=== PATIENT | female | born 1950 | race Caucasian/White ===

== ENCOUNTER → 2018-04-18 09:17 | Outpatient (CLI) | payer MEDICARE, OTHER ==
[2016-01-22 09:16] VITALS: BMI 38.7
[~2018-04-18 09:17] MED LIST: ARMOUR THYROID60 M1 PO; HYDROCODON-ACE1 EAC7 PO; MESTINON60 MG PO; PRILOSEC20 MG PO; RESTASIS EYE DR30 EA; RESTASIS EYE DR30 EA EACH EYE; SALAGEN5 MG PO
== END | disposition home or self-care (01) ==
LOC: D.HCCARDIO 09:17
DX: I20.9 Angina pectoris, unspecified (principal)

== ENCOUNTER 2018-05-02 11:04 | Outpatient (CLI) | payer MEDICARE, OTHER ==
[~2018-05-02] VITALS: Ht 167.6 cm; Wt 118.2 kg
--- NOTE | ~2018-05-02 | HEMODYNAMI ---
PATIENT:BEENA SWANSON MEDICAL RECORD: [id number] : 52 LOCATION:[facility] ADMISSION DATE: 05/02/18 Generatedon:05/02/201813:35 Patient name: BEENA SWANSON Patient #: [id number] SSN: : 1950 Date of study: 05/02/2018 Page: Of Hemodynamic Procedure Report Patient Data Patient Demographics Procedure consent was obtained First Name: BEENA Gender: Female Last Name: KIKI : 1950 Middle Initial: E Age: 67 year(s) Patient #: [id number] Race: Unknown Additional ID: [id number] Contact details [address]: [address] [place] [address] cutoff [facility] [place] [facility] Zip code: [address] Past Medical History Allergies Allergen Reaction Date Comments Reported Other allergy 05/02/2018 CODEINE, PCN, SULFA Admission Admission Data Admission Date: 05/02/2018 Admission Time: 11:04 Height (in.): 66 BSA: 2.24 (m2) Height (cm.): 167.64 BMI: 42.29 (kg/m2) Weight (lbs.): 262 Weight (kg.): 118.84 Lab Results Lab Result Date: 05/02/2018 Lab Result Time: 0:00 Biochemistry Name Units Result Min Max BUN mg/dl 19 --(----)*- 7 18 Creatinine mg/dl 0.8 --(-*--)-- 0.6 1.3 CBC Name Units Result Min Max Hemoglobin g/dl 14.3 --(*---)-- 13.5 17.5 Procedure Procedure Types Cath Procedure Diagnostic Procedure [facility] w/Coronaries Sedation Charges Moderate Sedation up to 15 minutes Procedure Description Procedure Date Procedure Date: 05/02/2018 Procedure Start Time: 13:20 Procedure End Time: 13:32 Procedure Staff Name Function Brown Rojas MD Performing Physician Tonja Doss RN Nurse Matt Andrews RT Scrub Rachelle Ibanez RT Monitor Procedure Data Cath Procedure Fluoroscopy Diagnostic fluoroscopy Total fluoroscopy Time: 1 time: 1 min min Diagnostic fluoroscopy Total fluoroscopy dose: 333 dose: 333 mGy mGy Contrast Material Contrast Material Type Amount (ml) Isovue 300 49 Entry Location Entry Primary Successful Side Size Upsize Upsize Entry Closure Succes sful Closure Location (Fr) 1 (Fr) 2 (Fr) Remarks Device Remarks Femoral Right 5 Fr Exoseal artery Estimated blood loss: 5 ml Diagnostic catheters Device Type Used For End Catheter Placement MULTIPACK JL 4.0 5Fr Procedure catheter MULTIPACK 3DRC 5Fr Procedure catheter MULTIPACK Pigtail 5 Fr Procedure catheter Procedure Complications No complications Procedure Medications Medication Administration Route Dosage 0.9% NaCl I.V. 100 ml/hr Oxygen etCO2 Nasal cannula 2 l/min Lidocaine 2% added to field 20 Heparin Flush Bag added to field 2 bags (1000units/500ml NS) Versed I.V. 2 mg Fentanyl I.V. 50 mcg Versed I.V. 1 mg Fentanyl I.V. 25 mcg Hemodynamics Rest BSA: 2.24 (m2) HGB: 14.3 (g/dl) O2 Consumption: Estimated: 198.46 (ml/min) O2 Co nsumption indexed: Estimated:88.6 (ml/min/m) Heart Rate: 58 (bpm) Pressure Samples Time Site Value (mmHg) Purpose Heart Use Rate(bpm) 13:29 LV 140/13,22 Snapshot 64 13:29 AO 146/77(102) Pullback 64 Gradients Valve Time Site Site 2 Mean SEP/DFP Peak To Heart Use 1 (mmHg) (sec/min) Peak Rate (mmHg) (bpm) Aortic 13:29 LV AO 64 146/77(102) Snapshots Pre Cath Intra NCS Post Cath Vital Signs Time Heart Resp SPO2 etCO2 NIBP (mmHg) Rhythm Pain Sedation Rate (ipm) (%) (mmHg) Status Level (bpm) 13:05:36 58 21 98 35.1 134/73(92) NSR 0 (11) 10(A) , No pain 13:10:06 57 13 100 42.6 126/73(91) NSR 0 (11) 10(A) , No pain 13:14:28 59 13 98 46.4 123/76(92) NSR 0 (11) 10(A) , No pain 13:18:53 59 11 98 42.6 135/75(92) NSR 0 (11) 10(A) , No pain 13:23:17 61 12 98 41.9 131/76(107) NSR 0 (11) 9(A) , No pain 13:27:46 60 14 100 44.8 133/73(97) NSR 0 (11) 9(A) , No pain 13:31:04 64 24 100 43.3 125/76(101) NSR 0 (11) 10(A) , No pain Medications Time Medication Route Dose Verified Delivered Reason Notes Eff ectiveness by by 13:04:21 0.9% NaCl I.V. 100 Brown Tonja used for ml/hr [place] Romario procedure RN 13:04:28 Oxygen etCO2 2 Brown Tonja used for Nasal l/min [facility] procedure cannula MD MIRZA 13:04:34 Lidocaine 2% added 20ml Brown Dasilva for local to vial [facility] anesthetic field MD CERVANTES 13:04:39 Heparin Flush added 2 Brown Brown used for Bag to bags [facility] procedure (1000units/500ml field MD CERVANTES NS) 13:15:35 Versed I.V. 2 mg Brown Tonja for [place] Doss sedation RN 13:15:40 Fentanyl I.V. 50 Brown Tonja for mcg [facility] Doss sedation RN 13:20:01 Fentanyl I.V. 25 Brown Tonja for mcg [facility] Doss sedation MD MIRZA 13:20:54 Versed I.V. 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 Start room use. 12:41:22 Signed procedure consent form obtained from patient. 12:41:24 Diagnostic Cath status Elective 12:41:26 Time tracking: Regular hours (M-F 7:00 - 5:00) 12:41:31 Plan of Care:Hemodynamics will remain stable., Cardiac rhythm will remain stable., Comfort level will be maintained., Respiratory function will remain adequate., Patient/ family verbilizes understanding of procedure., Procedure tolerated without complication., Recovers from procedure without complications.. 12:43:36 H&P Date Dictated: 04/06/2018 Within 30 days and on chart., H&P Addendum completed by physician on day of procedure. (MUST COMPLETE FOR ALL OUTPATIENTS). 12:43:47 Patient Height : 66 inches 12:43:50 Patient Weight : 262 lbs 12:45:27 Patient allergic to Other allergyCODEINE, PCN, SULFA 12:47:48 Lab Result : Creatinine 0.8 mg/dl 12:47:48 Lab Result : BUN 19 mg/dl 12:47:48 Lab Result : Hemoglobin 14.3 g/dl 12:57:14 Patient received from Pre/Post Procedure Room to CCL 1 Alert and oriented. Tansferred to table in Supine position. 12:57:15 Warm blankets applied, and domingo hugger turned on for patient comfort. 12:57:16 Correct patient and procedure confirmed by team. 12:57:16 ECG and BP/O2 sat monitors applied to patient. 13:04:12 Vital chart was started 13:04:21 0.9% NaCl 100 ml/hr I.V. was administered by Tonja Doss RN; used for procedure; 13:04:28 Oxygen 2 l/min etCO2 Nasal cannula was administered by Tonja Doss RN; used for procedure; 13:04:34 Lidocaine 2% 20ml vial added to field was administered by Brown Rojas MD; for local anesthetic; 13:04:39 Heparin Flush Bag (1000units/500ml NS) 2 bags added to field was administered by Brown Rojas MD; used for procedure; 13:10:07 Baseline sample Acquired. 13:10:12 Rhythm: sinus bradycardia 13:10:14 Full Disclosure recording started 13:10:14 Pre-procedure instructions explained to patient. 13:10:14 Pre-op teaching completed and patient verbalized understanding. 13:10:16 Family in patients room. 13:10:17 Patient NPO since Midnight. 13:10:19 Is patient on blood thinner?No 13:10:20 Patient diabetic? No. 13:10:26 Patient not . Patient is over age 55. 13:10:28 Previous problem with sedation/anesthesia? No ? 13:10:30 Snore? Yes 13:10:30 Sleep apnea? Yes 13:10:32 Deviated septum? No 13:10:33 Opens mouth fully? Yes 13:10:33 Sticks out tongue? Yes 13:10:36 Airway obstruction? No ? 13:10:40 Dentures? Yes OUT 13:11:10 Modified Bryan's test Ulnar < 7 seconds 13:11:13 Patient pain scale 0/10 ?. 13:11:26 IV patent on arrival in left hand with 0.9% NaCl at [facility]. 13:11:29 Lab results completed and on chart. 13:11:32 Right groin area was prepped with chlora-prep and draped in sterile fashion 13:11:34 Alarms reviewed by R. N. 13:11:34 Sharps counted by scrub and verified by R.N. 13:11:38 Use device set Radial Dx or PCI 13:11:39 ACIST Syringe (74074) opened to sterile field. 13:11:40 Bag Decanter (2002S) opened to sterile field. 13:11:40 ACIST Hand Control (23349) opened to sterile field. 13:11:41 ACIST Manifold (86983) opened to sterile field. 13:11:41 Tegaderm 4 x 4 (1626W) opened to sterile field. 13:11:44 Medline Cath Pack ([id number]) opened to sterile field. 13:11:44 DIAGNOSTIC WIRE .035 260cm J wire (336793) opened to sterile field. 13:11:45 MBrace Wrist Support ([id number]) opened to sterile field. 13:12:00 SHEATH 6FR RAIN (9946612) NO COST SUPPLY opened to sterile field. 13:14:57 --------ALL STOP TIME OUT------ 13:14:58 Final Timeout: patient, procedure, and site verified with staff and physician. All members of the team are in agreement. 13:15:00 Right Radial & Right Groin site verified by team. 13:15:02 Physical assessment completed. ASA score P 2 - A patient with mild systemic disease as per Brown Rojas MD. 13:15:05 Sedation plan: IV Moderate Sedation Medication:Versed, Fentanyl 13:15:35 Versed 2 mg I.V. was administered by Tonja Doss RN; for sedation; 13:15:40 Fentanyl 50 mcg I.V. was administered by Tonja Doss RN; for sedation; 13:16:29 Zero performed for pressure channel P1 13:16:38 Procedure started. 13:20:01 Fentanyl 25 mcg I.V. was administered by Tonja Doss RN; for sedation; 13:20:35 Local anesthetic to right radial artery with Lidocaine 2% by Brown Rojas MD.INITIAL ACCESS ONLY 13:20:54 Versed 1 mg I.V. was administered by Tonja Doss RN; for sedation; 13:22:52 UNABLE TO CANNULATE WILL PROCEED FEMORAL 13:24:33 SHEATH 5FR Conway ([id number]) opened to sterile field. 13:24:41 Use device set Multipack Set 13:24:43 DIAGNOSTIC Multipack 5Fr catheter set ([id number]) opened to sterile field. 13:25:08 Local anesthetic to left femerol artery with Lidocaine 2% by Brown Rojas MD.ADDITIONAL ACCESS 13:25:25 A 5 Fr sheath was inserted into the Right Femoral artery 13:25:53 A MULTIPACK JL 4.0 5Fr catheter was advanced over the wire and used for Procedure. 13:27:25 LCA angiography performed. 13:27:27 Catheter removed. 13:28:00 A MULTIPACK 3DRC 5Fr catheter was advanced over the wire and used for Procedure. 13:28:22 RCA angiography performed. 13:28:23 Catheter removed. 13:28:34 A MULTIPACK Pigtail 5 Fr catheter was advanced over the wire and used for Procedure. 13:28:59 LV gram done using MCCARTHY 13:29:03 Injector settings: Ml/sec: 10, Volume: 20, 13:29:35 LV hemodynamics recorded. 13:29:49 EF : 55 % 13:29:51 Catheter removed. 13:30:10 EXOSEAL 5Fr (EX500) opened to sterile field. 13:30:23 Sheath removed intact; hemostasis achieved with Exoseal to the Right Femoral artery. 13:30:25 Procedure ended.(Physican Out) :31:20 Fluoroscopy time 01.00 minutes. ::24 Fluoroscopy dose: 333 mGy :: Flurop Dose total: 333 13:: Contrast amount:Isovue 300 49ml. 13:31:29 Sharps counted by scrub and verified by R.N. 13:31:32 TR band inflated with 10cc of air. 13:31:34 Post-procedure physical assessment completed. ASA score P 2 - A patient with mild systemic disease as per Brown Rojas MD. 13:31:41 Post procedure rhythm: sinus bradycardia 13:31:43 Estimated blood loss: 5 ml 13:31:44 Post procedure instruction explained to patient.Patient verbalizes understanding. 13:31:45 Patient needs reinforcement of post procedure teaching. 13:31:53 Procedure type changed to Cath procedure, Diagnostic procedure, LHC, LHC w/Coronaries, Sedation Charges, Moderate Sedation up to 15 minutes 13:32:20 Procedure and supply charges have been captured, reviewed, submitted and are correct. 13:32:22 Procedure Complication : No complications 13:32:23 Vital chart was stopped 13:32:24 See physician's report for complete and final results. 13:32:26 Report given to Pre/Post Procedure Room. 13:32:28 Patient transfered to Pre/Post Procedure Room with Bed. 13:32:31 Procedure ended. 13:32:31 Full Disclosure recording stopped 13:32:34 End room use (Document Last) Device Usage Item Name Manufacture Quantity Catalog Hospital Part Current Minimal Lot# / Number Charge Number Stock Stock Serial# Code ACIST Acist 1 15468 389037 251170 598109 20 Syringe Medical (06468) Systems Inc Bag Microtek 1 2001S 919719 13371 347865 5 Decanter Medical Inc. (2001S) ACIST Hand Acist 1 64893 833420 292698 157223 5 Control Medical (69824) Systems Inc ACIST Acist 1 08577 994281 246965 206396 5 Manifold Medical (36937) Systems Inc Tegaderm 4 3M 1 1626W 211641 672025 314033 5 x 4 (1626W) Medline Medline 1 [id number] 816418 41807 367050 5 Cath Pack ([id number]) DIAGNOSTIC [facility] 1 149709 348642 784563 047860 30 WIRE .035 260cm J wire (943159) MBrace Advanced 1 140-0250-00 586346 09034 661878 5 Wrist Vascular Support Dynamics ([id number]) SHEATH 6FR Cardinal 1 3210195 721435 818653 5 [facility] (8871449) NO COST SUPPLY SHEATH 5FR Terumo 1 GVS370 565581 689289 513218 5 Conway (BKQ692) DIAGNOSTIC Cardinal 1 UK7887 458037 85907 898493 30 Multipack Health 5Fr catheter set (WS1710) MULTIPACK Cardinal 1 779990 5 JL 4.0 5Fr Health catheter MULTIPACK Cardinal 1 178673 5 3DRC 5Fr Health catheter MULTIPACK Cardinal 1 139999 5 Pigtail 5 Health Fr catheter EXOSEAL 5Fr Cardinal 1 EX500 411517 628500 246466 10 (EX500) Health Signature Audit [place] Stage Time Signature Unsigned Intra-Procedure 05/02/2018 Rachelle Ibanez 1:35:22 PM RT(R) Signatures Monitor : Rachelle Ibanez Signature : RT Date : Time : [address] [address]
[2018-05-02 11:41] VITALS: BP 132/74; Ht 167.6 cm; Wt 118.2 kg
[2018-05-02 12:00] LABS: BASOPHILS 0.3 % (0-2); HEMATOCRIT 41.8 % (36.0-48.0); HEMOGLOBIN 14.3 g/dL (12-16); IMMATURE GRANULOCYTES 0.3 % (0-5); LYMPHOCYTES 23.6 % (15-50); MCH 30.5 pg (26.0-34.0); MCHC 34.2 g/dL (31.0-37.0); MCV 89.1 fL (80.0-100.0); MEAN PLATELET VOLUME 9.5 fL (7.4-10.4); MONOCYTES 7.9 % (2-11); NEUTROPHILS 65.9 % (40-80); PLATELET COUNT 228 10x3/uL (130-400); RBC 4.69 10x6/uL (4.00-5.40); RDW 13.1 % (11.5-14.5); WBC 7.4 10x3/uL (4.8-10.8)
[2018-05-02 12:11] LABS: CALC OSMOLALITY 275 mosm/kg (275-300); CALCIUM 9.7 mg/dL (8.5-10.1); CARBON DIOXIDE 26.7 mmol/L (21.0-32.0); CHLORIDE - SERUM 100 mmol/L (98-107); CREATININE - SERUM 0.8 mg/dL (0.6-1.3); GLUCOSE 131 mg/dL (74-106); POTASSIUM - SERUM 4.4 mmol/L (3.5-5.1); SODIUM 136 mmol/L (136-145); UREA NITROGEN 19 mg/dL (7-18); eGFR NON AFRICAN AMERICAN 76 mL/min (90-120)
--- NOTE | 2018-05-02 14:00 | NUR ---
PT. RESTING. AROUSES TO VOICE. REQUESTING WATER. NO N/V. VSS. SB 57. O2 SAT 99%. BP 117/64. DENIES CP. RIGHT WRIST C/D/I. BANDAID INTACT. RIGHT GROIN 5 F EXO C/D/I. NO BLEEDING. NO HEMATOMA. 2+ PULSES.
--- NOTE | 2018-05-02 14:33 | NUR ---
PT. RESTING. AAO X4. DENIES CP. RIGHT WRIST C/D/I. RIGHT GROIN C/D//I. SKIN PINK AND WARM. 2+ PULSES. VSS. HR 64. BP 104/60
--- NOTE | 2018-05-02 15:00 | NUR ---
PT. AWAKE. EATING A SANDWICH. DENIES PAIN. NO N/V. VSS. 02 REMOVED. RIGHT WRIST AND RIGHT GROIN C/D/I.
--- NOTE | 2018-05-02 15:15 | NUR ---
HOB INCREASED. RIGHT GROIN C/D/I. NO BLEEDING. NO HEMATOMA. VSS. 2+ PULSES
--- NOTE | 2018-05-02 15:31 | NUR ---
DISCHARGE INSTRUCTIONS REVIEWED WITH PT AND FAMILY. LEFT PIV REMOVED AND DRESSING PLACED.
--- NOTE | 2018-05-02 15:31 | NUR ---
URINATED APPROX 200 CC CLEAR YELLOW OUTPUT. PT. DC IN WC TO VEHICLE.
--- NOTE | 2018-05-13 12:54 | OP ---
PATIENT NAME: BEENA SWANSON MEDICAL RECORD: [id number] :52 LOCATION:D.CAT ADMISSION DATE: SURGEON: MERISSA MURRAY MD DATE OF OPERATION: 05/02/2018 PROCEDURE: Left heart catheterization, selective coronary angiography, right femoral approach. CATHETERS: A 5-[place] sheath, 5/4 left and right Ashley, 5/4 pig. The procedure was well tolerated. The patient was returned to the brito. Sheath was removed. ExoSeal device was placed. FINDINGS: Left ventriculography in 30-degree MCCARTHY view: Normal wall motion and normal systolic function. CORONARY ANATOMY: LEFT MAIN: Left main is free of disease. LAD: Free of disease in the diagonal system. CIRCUMFLEX: Free of disease in the marginal system. RIGHT CORONARY ARTERY: Dominant artery, gives rise to PDA, free of disease. IMPRESSION: Normal LV systolic function. Normal coronary anatomy. 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
== END 2018-05-02 15:32 ==
LOC: D.CATH 11:04
PROVIDERS: Internal Medicine Interventional Cardiology
DX: R94.30 Abnormal result of cardiovascular function study, unspecified (principal); I20.0 Unstable angina; R06.2 Wheezing